=== PATIENT | female | born 1930 | race Caucasian/White ===

== ENCOUNTER 2016-03-17 08:30 | Outpatient (CLI) | payer MEDICARE, OTHER ==
[2016-03-17 08:51] LABS: INR-International Normal Ratio 1.8
== END 2016-03-17 08:31 | disposition home or self-care (01) ==
LOC: MADLAB 08:30
DX: I48.0 Paroxysmal atrial fibrillation (principal)
CPT/HCPCS: 36415; 85610

== ENCOUNTER 2016-04-01 10:33 | Outpatient (CLI) | payer MEDICARE ==
[2016-04-01 10:52] LABS: INR-International Normal Ratio 0.9; Prothrombin Time 12.9 SEC (12.0-14.7)
== END 2016-04-01 10:34 | disposition home or self-care (01) ==
LOC: MADLAB 10:33
PROVIDERS: ATTEND Internal Medicine
DX: I48.0 Paroxysmal atrial fibrillation (principal)
CPT/HCPCS: 36415; 85610

== ENCOUNTER 2016-04-08 08:48 | Outpatient (CLI) | payer MEDICARE ==
[2016-04-08 09:10] LABS: INR-International Normal Ratio 1.7; Prothrombin Time 20.2 SEC (12.0-14.7)
== END 2016-04-08 08:49 | disposition home or self-care (01) ==
LOC: MADLAB 08:48
PROVIDERS: ATTEND Internal Medicine
DX: I48.0 Paroxysmal atrial fibrillation (principal)
CPT/HCPCS: 36415; 85610

== ENCOUNTER 2016-05-06 11:08 | Outpatient (CLI) | payer MEDICARE ==
[2016-05-06 11:49] LABS: INR-International Normal Ratio 1.2; Prothrombin Time 15.3 SEC (12.0-14.7)
== END 2016-05-06 11:09 | disposition home or self-care (01) ==
LOC: MADLAB 11:08
PROVIDERS: ATTEND Internal Medicine
DX: I48.0 Paroxysmal atrial fibrillation (principal)
CPT/HCPCS: 36415; 85610

== ENCOUNTER 2016-07-23 11:29 | Outpatient (CLI) | payer MEDICARE ==
[2016-07-23 12:48] LABS: INR-International Normal Ratio 0.9; Prothrombin Time 12.3 SEC (12.0-14.7)
[2016-07-23 12:59] LABS: Anion Gap 13 mmol/L (10-20); BUN (Urea Nitrogen) 20 mg/dL (9.8-20.1); Calc. Creatinine Clearance 0 mL/min (70-130); Calcium 9.8 mg/dL (7.8-10.44); Carbon Dioxide 27 mmol/L (23-31); Chloride 104 mmol/L (98-107); Estimated GFR-MDRD 53; Glucose 112 mg/dL (83-110); Potassium 3.8 mmol/L (3.5-5.1); Sodium 140 mmol/L (136-145)
== END 2016-07-23 11:30 | disposition home or self-care (01) ==
LOC: MADLAB 11:29
PROVIDERS: ATTEND Internal Medicine
DX: I10 Essential (primary) hypertension (principal); I48.0 Paroxysmal atrial fibrillation
CPT/HCPCS: 36415; 80048; 85610

== ENCOUNTER 2017-11-16 17:17 | Emergency (ER) | payer MEDICARE ==
[2017-11-16 17:48] LABS: #Basophils 0.1 thou/uL (0.0-0.2); #Eosinphils 0.3 thou/uL (0.0-0.7); #Monocytes 0.8 thou/uL (0.11-0.59); %Basophils 1.2 % (0.0-1.0); %Eosinophils 3.6 % (0.0-10.0); %Lymphocytes 36.4 % (21.0-51.0); %Monocytes 9.8 % (0.0-10.0); %Neutrophils 49.1 % (42.0-75.0); Hemoglobin 14.9 g/dL (12.0-16.0); Mean Corpuscular HGB CONC 33.7 g/dL (32.0-36.0); Mean Corpuscular Volume 89.2 fL (78.0-98.0); Mean Platelet Volume 9.7 fL (7.4-10.4); Platelet Count 246 thou/uL (130-400); RBC Distribution Width 12.5 % (11.5-14.5); Red Blood Cell (RBC) Count 4.97 mill/uL (4.20-5.40); White Blood Cell (WBC) Count 8.2 thou/uL (4.8-10.8)
[2017-11-16 17:51] LABS: INR-International Normal Ratio 0.9; Prothrombin Time 12.2 SEC (12.0-14.7)
[2017-11-16 18:01] LABS: ALT (SGPT) 9 U/L (8-55); AST (SGOT) 14 U/L (5-34); Albumin 4.1 g/dL (3.4-4.8); Alkaline Phosphatase 107 U/L (40-150); Anion Gap 14 mmol/L (10-20); BUN (Urea Nitrogen) 23 mg/dL (9.8-20.1); Calc. Creatinine Clearance 0 mL/min (70-130); Calcium 10.5 mg/dL (7.8-10.44); Carbon Dioxide 28 mmol/L (23-31); Chloride 106 mmol/L (98-107); Estimated GFR-MDRD 39; Globulin 3.2 g/dL (2.4-3.5); Glucose 86 mg/dL (83-110); Potassium 3.5 mmol/L (3.5-5.1); Protein, Total 7.3 g/dL (6.0-8.3); Sodium 144 mmol/L (136-145)
--- NOTE | 2017-11-16 19:34 | RAD ---
PORTABLE CHEST ONE VIEW: 11/16/17 at 5:32 p.m. HISTORY: Chest pain. FINDINGS: The heart size is borderline. There is a left sided pacemaker device. The lungs are well expanded wit hout lobar consolidation, pneumothoraces, or pleural effusions. IMPRESSION: No acute process. POS: [facility]
[2017-11-16] MEDS ORDERED: Aspirin 325 MG TAB ONE (19:52)
== END 2017-11-16 20:49 | disposition short-term general hospital (02) ==
LOC: MADERS 17:17
DX: R07.89 Other chest pain (principal); F03.90 Unspecified dementia, unspecified severity, without behavioral disturbance, psychotic disturbance, mood disturbance, and anxiety; I11.0 Hypertensive heart disease with heart failure; I50.9 Heart failure, unspecified; Z79.899 Other long term (current) drug therapy
CPT/HCPCS: 71045; 80053; 83880; 84484; 85025; 85610; 93005

== ENCOUNTER 2018-04-22 10:13 | Outpatient (CLI) | payer MEDICARE ==
--- NOTE | 2018-04-22 12:07 | RAD ---
PA AND LATERAL CHEST: Date: 04/22/18 HISTORY: Cough. FINDINGS: Heart size within normal limits. Pacemaker present. Lungs are clear of any infiltrates. There are art hritic changes of the spine. IMPRESSION: Mild chronic-appearing lung change. No infiltrative process. POS: [facility]
== END 2018-04-22 10:14 | disposition home or self-care (01) ==
LOC: MADRAD 10:13
PROVIDERS: ATTEND Physician Assistant
DX: R05 Cough (principal)
CPT/HCPCS: 71046